=== PATIENT | female | born 1965 | race Hispanic/Latino ===

== ENCOUNTER 2017-09-12 08:19 | Outpatient (CLI) | payer MEDICARE ==
--- NOTE | 2017-09-12 10:12 | MRI ---
MRI OF CERVICAL SPINE WITHOUT CONTRAST: DATE: 09/12/17. COMPARISON: None available. HISTORY: Right-sided weakness with pain radiating into the shoulder and down the right arm. TECHNIQUE: Multiplanar, multisequence MR imaging of cervical spine provided without contrast. FINDINGS: Sagittal STIR imaging is limited by motion and demonstrates no discrete focal area of osseous marrow edema. There is straightening of the normal cervical lordosis. The craniocervical junction is intact. There is mild degenerative change at the atlantoaxial intersp franco. The cervicothoracic junction is grossly unremarkable. C2-3: No significant central canal or neural foraminal stenosis. C3-4: There is mild disk bulge with partial effacement of the ventral thecal sac and mild central ca nal stenosis. Facet and uncovertebral osteophyte formation on the left noted with a mild to moderate degree of left neural foraminal stenosis. No right neural foraminal stenosis. C4-5: Disk desiccation and mild disk space narrowing. No significant central canal stenosis. Mild to moderate left neural foraminal stenosis on the basis of facet and uncovertebral osteophyte formati on. C5-6: There is disk space narrowing and disk desiccation with a disk-osteophyte complex effacing the ventral thecal sac. Superimposed right paracentral/right foraminal disk protrusion noted. There is a mild to moderate degree of central canal stenosis, particularly laterally on the right. Facet and uncovertebral osteophyte formation causes a moderate degree of right neural foraminal stenosis as we ll. There is mild left neural foraminal stenosis. C6-7: No significant central canal or neural foraminal stenosis. C7-T1: No significant central canal or neural foraminal stenosis. No focal area of abnormal signal intensity is identified within the cervical cord. IMPRESSION: Multilevel degenerative change noted within the cervical spine, most prominent at C5-6 in the right p aracentral region and right neural foramen. POS: [facility]
== END 2017-09-12 08:20 | disposition home or self-care (01) ==
LOC: MRI 08:19
PROVIDERS: ATTEND Family Medicine
DX: M54.2 Cervicalgia (principal); R53.1 Weakness; M47.892 Other spondylosis, cervical region
CPT/HCPCS: 72141

== ENCOUNTER 2018-02-16 08:00 | Day surgery (SDC) | payer MEDICARE ==
[2018-02-11 11:59] VITALS: BMI 20.8
--- NOTE | 2018-02-15 23:26 | HP ---
HISTORY OF PRESENT ILLNESS: Ms. Morrow is a 52-year-old woman known to us from previous evaluations of cervical neck pain who presents now with worsening symptoms consistent with, C6 and C7 patterns wi th an MRI from [place] that reveals severe right-sided foraminal stenosis at C5-C6, moderate steno sis C6-C7, which would likely account for her symptoms. She has had repeated epidural steroid inject ions with both Dr. Lemon and Dr. Boo which do help, but her pain has progressed and now a con stant and pervasive symptom. PAST MEDICAL HISTORY: Significant for anxiety, depression, and chronic pain. CURRENT MEDICATIONS: Gabapentin, tramadol, duloxetine, escitalopram. ALLERGIES: No known drug allergies. PAST SURGICAL HISTORY: Cervical cancer resection, hysterectomy, cholecystectomy. PHYSICAL EXAMINATION: GENERAL: Patient alert and oriented x3. HEENT: Cervical range of motion is limited secondary to pain. EXTREMITIES: Upper extremity motor exam is normal bilaterally. Reflexes equal and present bilateral ly at the biceps tendon. ASSESSMENT: Cervical radiculopathy. PLAN: Dr. Woodward met with the patient, reviewed imaging and advocated for C5-C7 ACDF. He explained t o the patient the risks, benefits, alternatives of the procedure. The patient expressed understandin g and would like to move forward with surgery as discussed. I do believe the patient is mentally com petent and capable of making medical decisions for herself and moving forward with the surgery as john nned. Keon Dubois PA-C, dictating for Dr. Woodward.
[2018-02-16] MEDS ORDERED: CEFAZOLIN/Water 2 GM/20 ML SYRINGE ONE ×2 (08:34→14:20)
[2018-02-16] MEDS ORDERED: Midazolam HCl 2 mg/2 ml Vial ONE (08:34)
[2018-02-16] MEDS ORDERED: Fentanyl 100 MCG/2 ML VIAL ONE ×5 (08:35→11:48)
[2018-02-16] MEDS ORDERED: Gelfilm 1 EA Packet ONE (08:43)
[2018-02-16] MEDS ORDERED: Thrombin 5000 UNITS/5 ML VIAL ONE (08:43)
--- NOTE | 2018-02-16 12:02 | OP ---
DATE OF PROCEDURE: 02/16/2018 SURGEON: Moy Woodward M.D. LAW OFFICE MANAGER: Keon Dubois PA-C. INDICATION: Pain. DIAGNOSIS: Cervical radiculopathy. PROCEDURE: Anterior cervical discectomy and fusion C5-C7. ANESTHESIA: General. TECHNIQUE: The patient was brought into the operating room and placed under general anesthesia. She was placed on the table in supine position. A transverse incision was planned over the lateral aspe ct of the neck on the right. After prepping and draping and after an appropriate operative pause, th e incision was created. The underlying platysma muscle was identified and incised. A blunt tissue p paxton anterior to the sternocleidomastoid muscle was used to gain access to the prevertebral space. S elf-retaining retractors were placed in the wound for optimal exposure. After confirming the appropr iate level with C-arm fluoroscopy, an annulotomy was performed the C6-C7 disk space. All disk materi al as well as anterior and posterior osteophytes were removed. After complete decompression, a 7 mm lordotic PEEK cage packed with allograft and autograft material was placed within the interbody space . We then redirected our attention to the level above at C5-C6 where an annulotomy was performed. A ll disk material as well as anterior and posterior osteophytes were removed. After complete decompre ssion, a 6 mm lordotic PEEK cage packed with allograft and autograft material was placed within the i nterbody space. An anterior cervical plate was then fashioned to the front of the spine and secured with a total of six screws. Midline and lateral structures were then inspected and found to be free from significant trauma. The wound was irrigated. Hemostasis was maintained throughout. The wound was then closed in anatomic layers and a pressure dressing was applied. There were no known procedur al complications.
[2018-02-16] MEDS ORDERED: Acetaminophen/Codeine 30-300mg Tablet ONE (12:50)
[2018-02-16] MEDS ORDERED: Dexamethasone 20 MG/5 ML VIAL ONE (14:38)
[2018-02-16] MEDS ORDERED: Glycopyrrolate 0.2 MG/ML 5 ML SYRINGE ONE (14:38)
[2018-02-16] MEDS ORDERED: Lidocaine 1% PF 5 ML VIAL ONE (14:38)
[2018-02-16] MEDS ORDERED: Ondansetron HCl/PF 4 MG/2 ML Vial ONE (14:38)
[2018-02-16] MEDS ORDERED: PROPOFOL 200 MG/20 ML VIAL ONE (14:38)
== END 2018-02-16 14:50 | disposition home or self-care (01) ==
LOC: SDC 08:00
PROVIDERS: ATTEND Neurological Surgery
PROC: 0RG2070 Fusion of 2 or more Cervical Vertebral Joints with Autologous Tissue Substitute, Anterior Approach, Anterior Column, Open Approach (ICD-10-PCS; principal; 2018-02-16)
PROC: 0RG20A0 Fusion of 2 or more Cervical Vertebral Joints with Interbody Fusion Device, Anterior Approach, Anterior Column, Open Approach (ICD-10-PCS; 2018-02-16)
PROC: 0RG20J0 Fusion of 2 or more Cervical Vertebral Joints with Synthetic Substitute, Anterior Approach, Anterior Column, Open Approach (ICD-10-PCS; 2018-02-16)
PROC: 0RB30ZZ Excision of Cervical Vertebral Disc, Open Approach (ICD-10-PCS; 2018-02-16)
DX: M54.12 Radiculopathy, cervical region (principal); F41.9 Anxiety disorder, unspecified; F32.9 Major depressive disorder, single episode, unspecified; G89.29 Other chronic pain; Z79.899 Other long term (current) drug therapy
CPT/HCPCS: 76001; 96374; 96375; 96376; C1713; C1776; J0131; J1100; J2001; J2250; J2405; J2704; J3010

== ENCOUNTER 2018-03-31 10:22 | Outpatient (CLI) | payer MEDICARE ==
--- NOTE | 2018-03-31 12:05 | RAD ---
CERVICAL SPINE RADIOGRAPHS THREE VIEWS: Date: 03-31-18 Provided Clinical History: Cervical radiculopathy. FINDINGS: Comparison 04-03-09. Interval post-operative changes of ACDF from C5 through C7. No evidence for hardware loosening or reta ration. No evidence for fracture or other acute osseous abnormality. Cervical degenerative changes ar e seen. No prevertebral soft tissue swelling apparent. Visualized lung apices appear clear. IMPRESSION: Interval post-operative changes. POS: [facility]
== END 2018-03-31 10:23 | disposition home or self-care (01) ==
LOC: TBSIIMAG 10:22
PROVIDERS: ATTEND Neurological Surgery
DX: M54.12 Radiculopathy, cervical region (principal); Z98.890 Other specified postprocedural states
CPT/HCPCS: 72040

== ENCOUNTER 2018-10-07 07:07 | Day surgery (SDC) | payer MEDICARE ==
[2018-10-06 15:20] VITALS: BMI 20.8
[2018-10-07] MEDS ORDERED: Iopamidol-M 300 61% 15 ML VIAL ONE (08:23)
--- NOTE | 2018-10-07 10:03 | RAD ---
CERVICAL MYELOGRAM: EXPOSURE: 0.5 minutes 46.2 Gy per m2. FINDINGS: Two view lumbar spine tile and mottle supervisor radiograph demonstrates five lumbar type vertebral bodies. Vertebral bod y height is maintained. There is mild to moderate degenerative change at L5-S1. There is associated posterior element hypertrophy at L5-S1. Additional posterior element hypertrophy is noted at L4-L5. There is 8 mm of anterolisthesis of L4 upon L5. Two view cervical spine shows an anterior fusion plate with transvertebral body screws at C3, C4, C5, C6, and C7. There does appear to be perihardware lucency involving the screws at C5 and, to a lesse r extent, at C6, as well as at C7. Disk prostheses at C5-C6 and C6-C7. Predental space is normal. Mild facet hypertrophy is noted in the AP projection. Successful lumbar puncture. A total of 9 mL of Isovue-M 300 was administered intrathecally. Contrast did flow freely from the lumbar spine to the upper thoracic spine. The patient was left in the Trendelenburg position to allow contrast to flow into the cervical spine. TECHNIQUE: Consent obtained to perform a lumbar puncture for cervical myelogram. The L2-L3 level was deemed delmer ropriate. The skin was prepped and draped in a sterile fashion. Lidocaine 1%, buffered with sodium bicarbonate, was used for local anesthesia. Under fluoroscopic guidance, a 22 gauge spinal needle wa s advanced into the CSF space. There was prompt flow of clear CSF into the hub of the needle. Via a short tubing catheter, a total of 9 mL of Isovue-M 300 contrast was administered intrathecally. No immediate or post procedure complications. IMPRESSION: Successful lumbar puncture for cervical myelogram. POS: [facility]
--- NOTE | 2018-10-07 11:34 | CT ---
CT CERVICAL SPINE WITH CONTRAST: CT CERVICAL MYELOGRAM: INDICATIONS: Cervical radiculopathy (radiculopathy of cervical region). FINDINGS: There is anterior cervical disk fusion change from C5 through C7. There is slight separation of the anterior metallic plate from the inferior aspect of C6, as well as from the C7 vertebral body. There are intervertebral disk space prostheses at the C5-C6 and C6-C7 levels. Postoperative sclerosis of the C5, C6, and C7 vertebral bodies is noted. There is a slight degree of spondylolisthesis at C4-C5 . There is focal kyphosis centered at C5. No acute compression deformity. There is multilevel bilateral facet osteoarthritis, greatest on the left at the C4-C5 level. C1-C2: No significant central canal stenosis. C2-C3: There is a central zone disk osteophyte complex without significant central canal stenosis. Uncinate process hypertrophy is present, with minimal narrowing of the left neural foramen. C3-C4: Broad-based disk osteophyte produces mild narrowing of the central canal and mild ventral cor d flattening, more notable to the left. There is also uncinate process hypertrophy bilaterally, prod ucing mild to moderate right and mild left neural foraminal narrowing. C4-C5: Broad-based disk osteophyte results in mild narrowing of the central canal. The osteophyte a pproaches but does not significantly deform the ventral aspect of the cervical spinal cord. There is asymmetric prominent left facet hypertrophy, which, together with uncinate process hypertrophy, resu lts in moderate narrowing of the left neural foramen. The right neural foramen is patent. C5-C6: There is a right asymmetric disk osteophyte complex with mild central canal stenosis and mode rate right foraminal stenosis. Mild to moderate left foraminal compromise is noted. C6-C7: Streak artifact from hardware limits evaluation. No high-grade central canal stenosis. Ther e is mild to moderate right neural foraminal narrowing. No significant left foraminal stenosis. C7-T1: There is no high-grade compromise of the central canal or neural foramina. IMPRESSION: Multilevel degenerative change of the postoperative cervical spine. With regard to the ACDF site, th e anterior plate is slightly from the C6 and C7 vertebral bodies. Correlate clinically in t his regard. POS: [facility]
== END 2018-10-07 09:55 | disposition home or self-care (01) ==
LOC: RAD 07:07 → EDSTATUS 08:00 → RAD 09:55
PROVIDERS: ATTEND Nurse Practitioner Family
PROC: B01B1ZZ Fluoroscopy of Spinal Cord using Low Osmolar Contrast (ICD-10-PCS; principal; 2018-10-07)
DX: M54.12 Radiculopathy, cervical region (principal); M48.02 Spinal stenosis, cervical region; F32.9 Major depressive disorder, single episode, unspecified; F17.210 Nicotine dependence, cigarettes, uncomplicated; F10.10 Alcohol abuse, uncomplicated; M54.81 Occipital neuralgia; Z91.5 Personal history of self-harm; Z98.1 Arthrodesis status
CPT/HCPCS: 62302; 72126; Q9967

== ENCOUNTER 2018-10-09 09:02 | Outpatient (CLI) | payer MEDICARE ==
--- NOTE | 2018-10-09 10:31 | RAD ---
CERVICAL SPINE 3 VIEWS: INDICATION: Spondylolisthesis of cervical region. COMPARISON: Comparison is made to cervical spine films of 03/31/2018. FINDINGS: Lateral views were obtained with neutral, extension, and flexion positions. Prior anterior fusion procedure with anterior plate and screws transfixing C5, C6, and C7 with interb jesús implants. There is a slight anterolisthesis at C4-5 which was present previously. This measures 2-3 mm on neut ral position. It does reduce with extension. Disk spaces are preserved. Alignment is otherwise maintained. No significant interval change. IMPRESSION: 1. Postoperative changes at C5, C6, C7 as noted above. 2. Slight anterolisthesis at C4-5 again noted as described. POS: [facility]
== END 2018-10-09 09:03 | disposition home or self-care (01) ==
LOC: RAD 09:02
PROVIDERS: ATTEND Nurse Practitioner Family
DX: M43.12 Spondylolisthesis, cervical region (principal); Z98.890 Other specified postprocedural states
CPT/HCPCS: 72040

== ENCOUNTER 2018-10-23 13:22 | Outpatient (CLI) | payer MEDICARE ==
--- NOTE | 2018-10-23 13:57 | MMO ---
Bilateral MAMMO Bilat Screen [facility]. CLINICAL HISTORY: Patient is 53 years old and is seen for screening. The patient has the following family history of breast cancer: maternal aunt, at age 40. The patient has no personal history of cancer. VIEWS: The views performed were: bilateral craniocaudal with tomosynthesis and bilateral mediolateral oblique with tomosynthesis. FILMS COMPARED: The present examination has been compared to prior imaging studies performed at [facility] on 11/05/2016, and at [facility] on 06/20/2011. MAMMOGRAM FINDINGS: The breasts are heterogeneously dense, which could obscure a lesion on mammography. There are no suspicious masses, suspicious calcifications, or new areas of architectural distortion. IMPRESSION: THERE IS NO MAMMOGRAPHIC EVIDENCE OF MALIGNANCY. A ROUTINE FOLLOW-UP MAMMOGRAM IN 1 YEAR IS RECOMMENDED. THE RESULTS OF THIS EXAM WERE SENT TO THE PATIENT. ACR BI-RADS Category 1 - Negative MAMMOGRAPHY NOTE: 1. A negative mammogram report should not delay a biopsy if a dominant of clinically suspicious mass is present. 2. Approximately 10% to 15% of breast cancers are not detected by mammography. 3. Adenosis and dense breasts may obscure an underlying neoplasm.
--- NOTE | 2018-10-23 14:22 | BD ---
DEXA BONE DENSITY STUDY: Date: 10/23/18 COMPARISON: None. HISTORY: 53-year-old postmenopausal female for screening. FINDINGS: Lumbar Spine: BMD (g/cm2) L1 0.809 T-Score: -1.6 L2 0.781 T-Score: -2.2 L3 0.670 T-Score: -3.8 L4 0.710 T-Score: -3.2 L1-L4 0.736 T-Score: -2.8 Femoral Neck: 0.593 T-Score: -2.3 Total Femur: 0.832 T-Score: -0.9 IMPRESSION: Osteoporosis. This patient has approximately a 7x increased risk of fracture when compared with young patients with normal bone mineral density. POS: [facility]
== END 2018-10-23 13:23 | disposition home or self-care (01) ==
LOC: BICMAMMO 13:22
PROVIDERS: ATTEND Family Medicine
DX: Z12.31 Encounter for screening mammogram for malignant neoplasm of breast (principal); Z13.820 Encounter for screening for osteoporosis; M81.0 Age-related osteoporosis without current pathological fracture; Z80.3 Family history of malignant neoplasm of breast
CPT/HCPCS: 77063; 77067; 77080

== ENCOUNTER 2019-03-01 11:42 | Outpatient (CLI) | payer MEDICARE ==
--- NOTE | 2019-03-01 13:58 | MRI ---
Exam: Brain MRI with and without contrast HISTORY: Occipital headache COMPARISON: None FINDINGS: Gradient echo sequence: No hemorrhage Calvarium: Appropriate T1 marrow signal intensity Midline brain parenchyma: Unremarkable Cerebrum:No parenchymal mass, mass effect or midline shift. Brain volume is age appropriate. Brown-whi te matter differentiation is preserved Minimal white matter hyperintensities in T2 and FLAIR sequence. Ventricles: No evidence of hydrocephalus. Sinuses and mastoid air cells: Adequate aeration Diffusion: Central arterial flow is maintained. Absent restricted diffusion. Postcontrast images: No pathologic enhancement of the brain parenchyma. IMPRESSION: Unremarkable pre and postcontrast brain MRI.
--- NOTE | 2019-03-01 14:01 | MRI ---
Exam: MR angiography of the [place] HISTORY: Occipital headache. Comparison none TECHNIQUE: MR angiography of the [place] performed in the axial plane, utilizing 3-D time-of -flight imaging. Maximum intensity projection images are submitted for dictation FINDINGS: There is symmetric flow related signal in distal cervical and intracranial internal carotid arteries Anterior circulation: Symmetric flow related signal in A1 and M1 segments. Proximal A2 segments and p roximal MCA branches have appropriate flow related signal Posterior circulation: Limited evaluation of bilateral PICA artery origins. Grossly, bilateral PICA a rtery origins are unremarkable. Both vertebral arteries supply a normal appearing basilar artery. Appropriate flow related signal in bilateral P1 segments. Impression: Unremarkable MR angiography of the [place]
[2019-03-01] MEDS ORDERED: Gadobenate Dimeglumine 529 MG/1 ML (20ML VIAL) ONE (16:33)
== END 2019-03-01 11:43 | disposition home or self-care (01) ==
LOC: BICMRI 11:42
PROVIDERS: ATTEND Family Medicine
DX: R51 Headache (principal); R42 Dizziness and giddiness; Z82.49 Family history of ischemic heart disease and other diseases of the circulatory system
CPT/HCPCS: 70544; 70553; A9577

== ENCOUNTER 2022-08-29 21:06 | Observation (INO) | payer MEDICARE ==
[2022-08-30] MEDS ORDERED: Acetaminophen 325 MG TAB PO PRN (00:19)
[2022-08-30] MEDS ORDERED: hydrALAZINE 20 MG/ML VIAL SLOW IVP PRN (00:19)
[2022-08-30] MEDS ORDERED: Ondansetron ODT 4 MG TAB PO PRN (00:19)
[2022-08-30] MEDS ORDERED: Ondansetron PF 4 MG/2 ML Vial IVP PRN (00:19)
[2022-08-30 00:30] VITALS: BMI 23.0
[2022-08-30] MEDS ORDERED: Electrolyte Replacement Protocol 1 EACH FS SCH (00:30)
[2022-08-30] MEDS ORDERED: Gabapentin 300 MG CAP PO SCH ×3 (00:45→21:00)
[2022-08-30 06:27] LABS: #Basophils 0.1 thou/uL (0.0-0.2); #Eosinphils 0.2 thou/uL (0.0-0.7); #Lymphocytes 1.7 thou/uL (1.20-3.40); #Monocytes 0.5 thou/uL (0.11-0.59); #Neutrophils 2.2 thou/uL (1.40-6.50); %Basophils 1.1 % (0.0-1.0); %Eosinophils 3.9 % (0.0-10.0); %Lymphocytes 36.8 % (21.0-51.0); %Monocytes 9.7 % (0.0-10.0); %Neutrophils 48.5 % (42.0-75.0); Hemoglobin 12.6 g/dL (12.0-16.0); Mean Corpuscular HGB CONC 33.5 g/dL (32.0-36.0); Mean Corpuscular Hemoglobin 30.8 pg (27.0-31.0); Mean Corpuscular Volume 92.2 fl (78.0-98.0); Platelet Count 265 10x3/uL (130-400); RBC Distribution Width 11.7 % (11.5-14.5); White Blood Cell (WBC) Count 4.6 10x3/uL (4.8-10.8)
[2022-08-30 06:51] LABS: ALT (SGPT) 16 U/L (8-55); AST (SGOT) 28 U/L (5-34); Alkaline Phosphatase 75 U/L (40-110); Anion Gap 12 mmol/L (10-20); BUN (Urea Nitrogen) 9 mg/dL (9.8-20.1); Bilirubin, Total 0.6 mg/dL (0.2-1.2); Calc. Creatinine Clearance 98 mL/min (70-130); Calcium 9.4 mg/dL (7.8-10.44); Carbon Dioxide 26 mmol/L (22-29); Chloride 104 mmol/L (98-107); Cholesterol 200 mg/dl (< 200 Desired); Estimated GFR 105; Globulin 2.9 g/dL (2.4-3.5); Glucose 102 mg/dL (70-105); HDL Cholesterol 50 mg/dL (>60 Neg Risk); LDL Cholesterol, Calculated 133 mg/dL; Magnesium 2.1 mg/dL (1.6-2.6); Phosphorus 3.8 mg/dL (2.3-4.7); Potassium 3.4 mmol/L (3.5-5.1); Protein, Total 6.9 g/dL (6.0-8.3); Sodium 139 mmol/L (136-145); Triglycerides 86 mg/dL (Less than 150)
[2022-08-30] MEDS ORDERED: Potassium Chloride 20 MEQ TAB PO SCH (08:00)
[2022-08-30] MEDS ORDERED: Aspirin 81 mg Enteric Coated Tablet PO SCH (09:00)
[2022-08-30] MEDS ORDERED: traMADol HCl 50 MG TAB PO SCH ×2 (09:00→21:00)
[2022-08-30 14:06] LABS: Potassium 3.9 mmol/L (3.5-5.1)
[2022-08-30 16:07] VITALS: BP 119/77; TEMP 98.1
== END 2022-08-30 18:25 | disposition home or self-care (01) ==
LOC: NEURO 22:29
PROVIDERS: ADMIT Internal Medicine; ATTEND Family Medicine
DX: G51.0 Bell's palsy (principal); E87.6 Hypokalemia; G89.29 Other chronic pain; M79.601 Pain in right arm; M79.602 Pain in left arm; F17.200 Nicotine dependence, unspecified, uncomplicated; M81.0 Age-related osteoporosis without current pathological fracture; I08.1 Rheumatic disorders of both mitral and tricuspid valves; Z79.899 Other long term (current) drug therapy; Z20.822 Contact with and (suspected) exposure to COVID-19
CPT/HCPCS: 70551; 80053; 80061; 83735; 84100; 84132; 85025; 93306; U0003; U0005; 36415; G0378